=== PATIENT | male | born 1990 | race Caucasian/White ===

== ENCOUNTER 2023-07-05 18:48 | Emergency (ER) | payer BC, SELFPAY ==
--- NOTE | ~2023-07-05 | XR_ITS ---
EXAM: XR hand LT min 3V DATE: 07/05/2023 20:30 HISTORY: injury CUT DISTAL 5TH DIGIT WITH CHAINSAW BANDAGE APPLIED . COMPARISON: None available. FINDINGS: Osseous detail obscured by bandage material. Normal mineralization. 3 mm linear minimally d isplaced fracture fragment along the medial aspect of the tuft of the fifth distal phalange. No lytic or blastic lesion. Joint spaces are maintained. No erosion or periosteal change. Soft tissues within normal limits. IMPRESSION: 3 mm fracture fragment along the medial aspect of the tuft of the fifth distal phalange. Reviewed, dictated and finalized at location K. IMPRESSION: 3 mm fracture fragment along the medial aspect of the tuft of the f ifth distal phalange.
[2023-07-05 19:51] VITALS: PULSE 70; RESP 15; TEMP 36.8; O2SAT 100
--- NOTE | 2023-07-05 21:54 | ED.UPPEXIN ---
HPI - Extremity Injury (Upper) General Chief Complaint: Extremity Injury, Upper Stated Complaint: cut finger with chainsaw Time Seen by Provider: 07/05/23 21:06 Source: patient Mode of arrival: ambulatory Limitations: no limitations History of Present Illness HPI narrative: Patient is a 33-year-old male who presents ED with report of a laceration to his left fifth digit. Patient reports he was using a chainsaw around 6 PM tonight to cut brush when the chainsaw bounced against the ground and came back hitting his finger. He sustained a few jagged lacerations to the lateral edge of his L 5th finger. Denies any numbness or tingling. Tetanus unknown. No other injuries. Related Data Allergies Allergy/AdvReac Type Severity Reaction Status Date / Time No Known Allergies Allergy Verified 07/05/23 19:54 Review of Systems Review of Systems: CONSTITUTIONAL: Denies fever, chills, or sweats. SKIN: See HPI. MUSCULOSKELETAL: Denies back pain, joint pain, or myalgia. NEUROLOGIC: Denies tingling, numbness, or weakness. All systems reviewed & are unremarkable except as noted in HPI and below PMFSH Family History Family History Grandparent Family history of arthritis Social History Social History Smoking status: Never smoker Alcohol intake: current Exam Narrative: GENERAL: Well appearing, well-nourished, non-toxic, in no acute distress. HEAD: Normocephalic, atraumatic. NECK: Supple. No adenopathy, no masses. RESPIRATORY: Airway patent, respirations nonlabored. CARDIOVASCULAR: Regular rate and rhythm without murmurs, rubs, or gallops. Radial pulses 2+ and equal bilaterally. MUSCULOSKELETAL: Moves all extremities. Strength/ROM intact without gross deformities. SKIN: Warm, dry, normal color. No rashes. Several linear vertical lacerations to the lateral edge of left fifth digit with jagged edges. Minimal active bleeding. Sensation intact. 1 laceration does butt up to the lateral edge of the nail, though no nail involvement, nailbed intact, cuticle intact. NEURO: A&O X3. Speech clear. Cranial nerves II-XII grossly intact. Steady gait. No ataxic movements. PSYCHIATRIC: Appropriate mood and affect. Normal interaction. Course Vital Signs Vital signs: Vital Signs Temperature 98.3 F 07/05/23 19:51 Pulse Rate 70 07/05/23 19:51 Respiratory Rate 15 07/05/23 19:51 Pulse Oximetry 100 07/05/23 19:51 Oxygen Delivery Room Air 07/05/23 19:51 Temperature 98.3 F 07/05/23 19:51 Pulse Rate 60 07/06/23 00:21 Respiratory Rate 15 07/06/23 00:21 Blood Pressure 129/80 07/06/23 00:21 Pulse Oximetry 100 07/06/23 00:21 Oxygen Delivery Room Air 07/05/23 19:51 Procedures Laceration Laceration 1: Date: 07/05/23 Time: 23:20 Site: hand (5th digit) Side (If applicable): left Size (cm): 3 Description: irregular and clean Depth: simple, single layer Local Anesthetic: other anesthetic (digital block) Pre-repair: wound explored, irrigated and irrigated extensively ====== Skin Level ====== Skin layer closed with: nylon Size (cm): 5-0 Number of sutures: 15 Technique: simple, interrupted ====== Subcutaneous Layer ====== ====== Muscle Layer ====== ====== Tendon Layer ====== Nerve Block Nerve Block 1: Nerve block date: 07/05/23 Nerve block time: 23:10 Time out performed: Yes Local Anesthetic: lidocaine 1% Amount of anesthesia used (mL): 4 Side: left Nerve Blocks: digital (5th digit) Procedure Successful: Yes Patient Tolerated Procedure: well and no complications Complications: none MDM - Extremity Injury (Upper) MDM Narrative Medical decision making narrative: Chainsaw injury with jagged lacerations to the
[2023-07-05] MEDS: TETANUS,DIPHTHERIA,AC PERTUSSIS ADULT (0.5 ML) BOOSTRIX IM (22:15)
[2023-07-05] MEDS: ONDANSETRON HCL ODT 4 MG TABLET PO (22:15)
[2023-07-05] MEDS: ceFAZolin SODIUM 1 GM VIAL IM (22:16)
[2023-07-05] MEDS: LIDOCAINE HCL 1% LOCAL INJ 10 ML VIAL 5 ML INFILTRATE (22:17)
[2023-07-06] MEDS: HYDROcodone/acetaminophen (*CRX) 5-325 MG TABLET 1 TAB PO (00:06)
[2023-07-06 00:21] VITALS: BP 129/80; PULSE 60; RESP 15; O2SAT 100
== END 2023-07-06 00:23 | disposition home or self-care (01) ==
PROVIDERS: Emergency Provider Physician Assistant; PCP Student in an Organized Health Care Education/Training Program
DX: S62.637B Displaced fracture of distal phalanx of left little finger, initial encounter for open fracture (principal); Z23 Encounter for immunization; W29.3XXA Contact with powered garden and outdoor hand tools and machinery, initial encounter
CPT/HCPCS: 12002; 73130; 90471; 90715; 99284; A9270; J0690